=== PATIENT | female | born 1965 | race Caucasian/White ===

== ENCOUNTER 2022-06-20 13:57 | Emergency (ER) | payer BC | END 2022-06-20 14:44 | disposition home or self-care (01) | LOC: JP.ED 13:57 | DX: S62.317A Displaced fracture of base of fifth metacarpal bone, left hand, initial encounter for closed fracture (principal); Z88.1 Allergy status to other antibiotic agents; I10 Essential (primary) hypertension; Z79.899 Other long term (current) drug therapy; W23.0XXA Caught, crushed, jammed, or pinched between moving objects, initial encounter | CPT/HCPCS: 73130-26-LT; 73130-LT; 99283 ==

== ENCOUNTER 2024-06-27 11:33 | Emergency (ER) | payer BC ==
[2024-06-27] MEDS: Ondansetron 4 MG/2 ML SDV IVPUSH ONE (12:34)
[2024-06-27] MEDS: HYDROmorphone 0.5 MG/0.5 ML Syringe IVPUSH ONE ×2 (12:34→13:25)
[2024-06-27 14:12] LABS: BASOPHILS ABSOLUTE AUTO 0.06 K/uL (0.00-0.10); EOSINOPHILS ABSOLUTE AUTO 0.21 K/uL (0.00-0.40); EOSINOPHILS PERCENT AUTO 3.4 % (0.0-5.4); HEMATOCRIT 35.8 % (34.3-46.0); HEMOGLOBIN 12.7 g/dL (11.2-15.5); IMMATURE GRAN ABSOLUTE AUTO 0.02 K/uL (0.00-0.23); IMMATURE GRAN PERCENT AUTO 0.3 % (0.0-0.7); LYMPHOCYTES PERCENT AUTO 22.4 % (11.4-47.7); MEAN CORPUSCULAR HGB CONC 35.5 g/dL (31.6-35.5); MONOCYTES ABSOLUTE AUTO 0.55 K/uL (0.20-0.90); MONOCYTES PERCENT AUTO 8.8 % (3.3-12.6); NEUTROPHILS PERCENT AUTO 64.1 % (40.0-78.1); PLATELET COUNT,PLT 266 K/uL (130-375); RED BLOOD CELL COUNT 3.85 M/uL (3.77-5.24); WHITE BLOOD CELL COUNT,WBC 6.2 K/uL (3.2-11.0)
[2024-06-27 14:15] LABS: CALCIUM 8.9 mg/dL (8.5-10.1); EST CRCL DRUG DOSING (CG) 48.87 mL/min; POTASSIUM,K 3.8 mmol/L (3.6-5.2)
[2024-06-27 14:16] LABS: ANION GAP 14.8 mmol/L (5.0-14.0)
[2024-06-27] MEDS ORDERED: Propofol 200 MG/20 ML SDV ONE (14:31)
[2024-06-27] MEDS: Metoclopramide 10 MG/2 ML SDV IVPUSH ONE (16:51)
== END 2024-06-27 15:30 | disposition home or self-care (01) ==
LOC: JP.ED 11:33
DX: S52.502A Unspecified fracture of the lower end of left radius, initial encounter for closed fracture (principal); I10 Essential (primary) hypertension; Z88.1 Allergy status to other antibiotic agents; Z79.899 Other long term (current) drug therapy; W19.XXXA Unspecified fall, initial encounter
CPT/HCPCS: 25605; 36415; 73110; 76000; 80048; 85025; 93005; 96374; 96375; 96376; 99284; J1170; J2405; J2704

== ENCOUNTER 2024-06-29 08:10 | Day surgery (SDC) | payer BC ==
[2024-06-29] MEDS: Nozin Nasal Sanitizer NASBOTH ONE (08:37)
[2024-06-29] MEDS ORDERED: Propofol 200 MG/20 ML SDV ONE (08:55)
[2024-06-29] MEDS ORDERED: Midazolam 1 MG/ML 2 ML SDV ONE (08:55)
[2024-06-29] MEDS ORDERED: fentaNYL 250 MCG/5 ML SDV ONE (08:56)
[2024-06-29] MEDS ORDERED: ceFAZolin 2 GM in Premix Bag 1 BAG IV ONE (09:00)
[2024-06-29] MEDS: Lactated Ringers 1,000 ML IV SCH (09:13)
[2024-06-29] MEDS: Scopalamine 1mg/3day Transdermal Patch TOP SCH (09:54)
[2024-06-29] MEDS ORDERED: Ondansetron 4 MG/2 ML SDV ONE (11:16)
[2024-06-29] MEDS ORDERED: Dexamethasone 4 MG/ML SDV ONE (11:16)
[2024-06-29] MEDS: Bupivacaine 0.5% 30 ML SDV ONE (11:52)
[2024-06-29] MEDS: traMADol 50 MG Tab PO ONE (13:15)
== END 2024-06-29 13:39 | disposition home or self-care (01) ==
LOC: JP.SDS 08:10
PROVIDERS: ATTEND Specialist
DX: S52.552A Other extraarticular fracture of lower end of left radius, initial encounter for closed fracture (principal); R63.4 Abnormal weight loss; J44.9 Chronic obstructive pulmonary disease, unspecified; E11.9 Type 2 diabetes mellitus without complications; R53.83 Other fatigue
CPT/HCPCS: 01830; 25607; 76000; A9270; C1713; J0665; J1100; J2250; J2405; J2704; J3010; J7120

== ENCOUNTER 2025-03-31 13:24 | Emergency (ER) | payer BC ==
[2025-03-31] MEDS: Prochlorperazine 10 MG/2 ML SDV IM ONE (14:24)
[2025-03-31] MEDS: Doxycycline 100 MG Cap PO ONE (14:44)
== END 2025-03-31 15:33 | disposition home or self-care (01) ==
LOC: JP.ED 13:24
DX: L25.5 Unspecified contact dermatitis due to plants, except food (principal); F41.9 Anxiety disorder, unspecified; I10 Essential (primary) hypertension; Z88.1 Allergy status to other antibiotic agents; Z79.899 Other long term (current) drug therapy
CPT/HCPCS: 96372; 99282; A9270; J0780